=== PATIENT | female | born 1960 | race Caucasian/White ===

== ENCOUNTER 2018-10-01 08:19 | Emergency (ER) | payer BC ==
[~2018-10-01] VITALS: Ht 149.9 cm; Wt 77.3 kg
[~2018-10-01 08:19] MED LIST: AMBIEN 10MG10 MG PO; AMBIEN 5MG TABLE5 MG PO; CALCIUM CARB500 MG PO; CALCIUM1 CAP PO; FERROUS SU325 MG/TAB PO; FLUOXETINE20 MG PO; INDERAL 10MG10 MG PO; MOTRIN 200200 MG/TAB PO; NATURAL E400 IU PO; NEXIUM 40MG40 MG PO; OMEPRAZOLE40 MG PO; PROAIR HFA0.09 MG/AC IH; PROZAC40 MG PO; TYLENOL 500MG500 MG PO; VITAMIN D 1001000 IU PO; VITAMIN E28000 IU TP; [UNRECOGNIZED DRUG - OTHER] PO; fluoxetine PO
[2018-10-01 08:23] VITALS: TEMP 96.3
[2018-10-01 08:59] LABS: BASO # 0.1 (0.0-0.2); BASO % 0.5 % (0.0-2.0); EOS # 0.1 (0.0-0.7); EOS % 0.7 % (0-4.0); GRAN # 8.5 (1.4-6.5); GRAN % 72.1 % (42.2-75.2); HEMATOCRIT 42.3 % (37.0-47.0); HEMOGLOBIN 14.1 g/dl (12.5-16.0); LYMPH # 2.5 (1.2-3.4); LYMPH % 21.5 % (20.0-51.0); MEAN CELL VOLUME 92 fl (80.0-100.0); MEAN CORPUSCULAR HEMOGLOBIN 31 pg (27.0-31.0); MEAN CORPUSCULAR HGB CONC 33 g/dl (33.0-37.0); MEAN PLATELET VOLUME 9.8 fl (7.4-10.4); MONO # 0.6 (0.1-0.6); MONO % 4.8 % (1.7-9.3); PLATELET COUNT 278 K/mm3 (130-400); RED BLOOD COUNT 4.58 M/mm3 (4.10-5.30)
[2018-10-01 09:12] LABS: ALBUMIN 4.5 gm/dL (3.5-5.0); BILIRUBIN,TOTAL 0.5 mg/dL (0.0-1.0); C-REACTIVE PROTEIN 0.8 mg/dL (0.0-0.9); CALCIUM 9.7 mg/dL (8.4-10.2); CREATININE, serum 0.83 (0.52-1.25); TOTAL PROTEIN 7.8 gm/dL (6.4-8.2)
[2018-10-01] MEDS ORDERED: ZOFRAN 4MG T4 MG/TAB PO (10:38)
[2018-10-01] MEDS ORDERED: NORCO 325 MG-7.1 TAB PO (10:38)
[2018-10-01 11:45] LABS: COLLECTION METHOD CLEAN CATCH
[2018-10-01 11:52] LABS: MUCOUS Present /lpf; PH 7 (5-8); SQUAMOUS EPITHELIAL 0-2 /hpf; URINE APPEARANCE Clear; URINE BACTERIA None Seen /hpf; URINE BILIRUBIN Negative (NEGATIVE); URINE BLOOD 1+ (NEGATIVE); URINE COLOR Straw; URINE GLUCOSE Negative (NEGATIVE); URINE KETONE Negative (NEGATIVE); URINE LEUKOCYTE ESTERASE 1+ (NEGATIVE); URINE NITRATE Negative (NEGATIVE); URINE PROTEIN(semi-quant) Negative (NEGATIVE); URINE UROBILINOGEN Negative (NEGATIVE)
[2018-10-01 12:28] VITALS: BP 162/94; PULSE 104
== END 2018-10-01 12:49 | disposition home or self-care (01) ==
LOC: COL.ER 08:19
PROVIDERS: Physician Assistant
DX: N20.2 Calculus of kidney with calculus of ureter (principal); I10 Essential (primary) hypertension; D64.9 Anemia, unspecified; K21.9 Gastro-esophageal reflux disease without esophagitis; Z79.1 Long term (current) use of non-steroidal anti-inflammatories (NSAID); Z87.891 Personal history of nicotine dependence; Z90.49 Acquired absence of other specified parts of digestive tract; Z90.721 Acquired absence of ovaries, unilateral
CPT/HCPCS: J1170; J1885; J2405; J7030; Q9967

== ENCOUNTER 2023-09-11 08:04 | Day surgery (SDC) | payer BC ==
[~2023-09-11] VITALS: Ht 147.3 cm; Wt 84.7 kg
[~2023-09-11 08:04] MED LIST changes: +LR 1,000 ML IV SCH; +NORCO 325 MG-7.1 TAB PO; +Ondansetron 4 MG/2 ML VIAL IV PRN; +ZOFRAN 4MG T4 MG/TAB PO
[2023-09-11] MEDS ORDERED: Lidocaine PF 2% (20 MG/ML) 5 ML VIAL ONE (09:05)
[2023-09-11] MEDS ORDERED: Glycopyrrolate 0.2 MG/ML 1 ML VIAL ONE (09:05)
[2023-09-11] MEDS ORDERED: PROZAC 10MG10 MG PO (09:28)
[2023-09-11] MEDS ORDERED: TOPROL XL 50MG50 MG PO (09:29)
[2023-09-11] MEDS ORDERED: ALDACTONE50 MG PO (09:30)
[2023-09-11] MEDS ORDERED: NYSTATIN100000 U/1 TOP (09:34)
[2023-09-11] MEDS ORDERED: ULTRAM 50MG TAB50 MG PO (09:35)
[2023-09-11] MEDS ORDERED: TRIAMC 0.1 454 TOP (09:36)
[2023-09-11] MEDS ORDERED: VITAMIN B12 781 TAB PO (09:37)
[2023-09-11 11:35] VITALS: BP 104/67; PULSE 100; TEMP 98
[2023-09-11 11:50] VITALS: BP 121/67; PULSE 100
[2023-09-11 12:05] VITALS: BP 124/72; PULSE 98
--- NOTE | 2023-09-11 12:27 | NUR ---
1135: Pt arrived to bay [facility] - ambulated from cart to chair with standby assist 1140: pt tolerating po intake well 1208: MD Mara in room with pt and 1226: pt verbalizes understanding discharge materials 1230: pt escorted out via wheelchair with to vehicle
[2023-09-11 13:25] VITALS: BP 135/80; PULSE 92; TEMP 97.7
--- NOTE | 2023-09-11 13:28 | NUR ---
0857 Patient admitted to [facility] Patient ambulatory to bay 5 with the use of a cane, breathing even and unlabored. Pt is alert and oriented. Consents reviewed and signed by the patient. IV established. LR infusion via gravity at KVO. Call light in reach. Warm blanket provided.
== END 2023-09-11 12:29 | disposition home or self-care (01) ==
LOC: SDCO 08:04
DX: D50.8 Other iron deficiency anemias (principal); K44.9 Diaphragmatic hernia without obstruction or gangrene; K57.30 Diverticulosis of large intestine without perforation or abscess without bleeding; R05.9 Cough, unspecified; Q39.8 Other congenital malformations of esophagus; Z87.891 Personal history of nicotine dependence
CPT/HCPCS: J2704; J7120

== ENCOUNTER 2023-11-28 19:33 | Inpatient (IN) | payer BC ==
[~2023-11-28] VITALS: Ht 149.9 cm; Wt 86.3 kg
[~2023-11-28 19:33] MED LIST changes: +ALDACTONE50 MG PO; +ANTACID500 M1 PO; -CALCIUM CARB500 MG PO; -LR 1,000 ML IV SCH; +NYSTATIN100000 U/1 TOP; -Ondansetron 4 MG/2 ML VIAL IV PRN; +PROZAC 10MG10 MG PO; +TOPROL XL 50MG50 MG PO; +TRIAMC 0.1 454 TOP; +ULTRAM 50MG TAB50 MG PO; +VITAMIN B12 781 TAB PO
[2023-11-28] MEDS ORDERED: Ketorolac 30 MG/ML VIAL IV ONE (20:00)
[2023-11-28] MEDS ORDERED: Ondansetron 4 MG/2 ML VIAL IV ONE (20:00)
[2023-11-28] MEDS ORDERED: NS 1,000 ML IV ONE ×2 (20:00→21:30)
[2023-11-28 20:02] LABS: COLLECTION METHOD CLEAN CATCH
[2023-11-28 20:15] LABS: URINE APPEARANCE CLOUDY (CLEAR/HAZY); URINE BLOOD 2+ (NEGATIVE); URINE COLOR YELLOW (YELLOW); URINE GLUCOSE NEGATIVE (NEGATIVE); URINE KETONE NEGATIVE (NEGATIVE); URINE NITRATE POSITIVE (NEGATIVE); URINE PROTEIN(semi-quant) 1+ (NEGATIVE); URINE UROBILINOGEN 0.2 E.U/dL (0.2-1.0)
[2023-11-28 20:15] LABS: BASO % 0.2 % (0.0-2.0); EOS % 0.1 % (0.0-4.0); GRAN # 16.5 K/mm3 (1.4-6.5); GRAN % 86.4 % (42.2-75.2); HEMOGLOBIN 11.8 g/dl (12.5-16.0); LYMPH # 1.1 K/mm3 (1.2-3.4); LYMPH % 5.7 % (20.0-51.0); MEAN CELL VOLUME 82 fl (80.0-100.0); MEAN CORPUSCULAR HEMOGLOBIN 26 pg (27-31); MEAN CORPUSCULAR HGB CONC 32 g/dl (33.0-37.0); MONO # 1.3 K/mm3 (0.1-0.6); PLATELET COUNT 248 K/mm3 (130-400); RED BLOOD COUNT 4.51 M/mm3 (4.10-5.30); REDCELL DISTRIBUTION WIDTH-CV 14.8 % (11.5-14.5)
[2023-11-28 20:21] LABS: HEMATOCRIT 36.9 % (37.0-47.0)
[2023-11-28 20:35] LABS: ALBUMIN 3.4 g/dL (3.4-4.8); BILIRUBIN,TOTAL 0.7 mg/dL (0.2-1.2); CALCIUM 9.1 mg/dL (8.4-10.2); CREATININE, serum 0.81 mg/dL (0.57-1.11); POTASSIUM 3.3 mEq/L (3.5-4.5); TOTAL PROTEIN 7.1 g/dl (6.2-8.1)
[2023-11-28] MEDS ORDERED: cefTRIAXone 1 G in Water For Injection,Sterile 10 ML IV ONE (21:30)
[2023-11-28] MEDS ORDERED: Iohexol 300 - 100 ML VIAL IV ONE (21:31)
[2023-11-28] MEDS ORDERED: NS 100 ML IV ONE (21:32)
[2023-11-28] MEDS ORDERED: NS 1,000 ML IV SCH (23:00)
[2023-11-28] MEDS ORDERED: Potassium Bicarbonate/Citrate 20 MEQ Effervescent TAB PO SCH (23:00)
[2023-11-28] MEDS ORDERED: Ondansetron 4 MG/2 ML VIAL IV PRN (23:00)
[2023-11-28] MEDS ORDERED: HYDROmorphone 0.5 MG/0.5 ML SYRINGE IV PRN (23:00)
[2023-11-28] MEDS ORDERED: Acetaminophen 325 MG TAB PO PRN (23:00)
[2023-11-28] MEDS ORDERED: Albuterol 0.083% Neb Soln 2.5 MG/3 ML UD IH PRN (23:15)
[2023-11-29] VITALS (26 sets, daily range): BP systolic 83–126; BP diastolic 45–66; PULSE 73–109; TEMP 97.7–98.7
[2023-11-29] MEDS ORDERED: traMADol 50 MG TAB PO SCH
--- NOTE | 2023-11-29 00:08 | NUR ---
Spoken with Katey, the DIRECTOR AND PROFESSOR and clarified with her regarding the potassium order considering she's NPO postmidnight, she said it can be given with sips of water.
--- NOTE | 2023-11-29 00:46 | NUR ---
Patient arrived to the floor from ED per wheelchair at 2325, A/Ox4, admission assessment and intake done, medrec reviewed, hospital policies orientated, reports headache and right flank pain, medicated with tylenol and ultram, with IV infusing well on right AC, potassium 3.3 will replace as ordered, with oxygen via nasal cannula at 4LPM, satting 98%, turned it down to 3LPM, RT informed, denies further needs, call light and personal items within reach, will continue to monitor.
[2023-11-29] MEDS ORDERED: NS 1,000 ML IV ONE (04:30)
--- NOTE | 2023-11-29 04:42 | NUR ---
Patient's BP is 88 systolic, reports lightheaded, tachycardic between 110-105 called Katey and made her aware, received an order for bolus 1L, no further orders, charge nurse was aware of this as well, MEW score of 3, will closely monitor.
--- NOTE | 2023-11-29 05:05 | NUR ---
Updated Katey at 0435 regarding pt's latest blood pressure which is 97/62, no new orders at this time.
--- NOTE | 2023-11-29 05:59 | NUR ---
Updated Katey, the TEA TREE FARMER regarding pt's current blood pressure which is 98/62, still tachycardic at 107, no new orders at this time, will continue to monitor, will report off to dayscoft nurse.
[2023-11-29 06:35] LABS: HEMOGLOBIN 10.3 g/dl (12.5-16.0); MEAN CELL VOLUME 84 fl (80.0-100.0); MEAN CORPUSCULAR HEMOGLOBIN 26 pg (27-31); MEAN CORPUSCULAR HGB CONC 31 g/dl (33.0-37.0); MEAN PLATELET VOLUME 10.2 fl (7.4-10.4); PLATELET COUNT 220 K/mm3 (130-400); RED BLOOD COUNT 3.91 M/mm3 (4.10-5.30); REDCELL DISTRIBUTION WIDTH-CV 15.2 % (11.5-14.5)
--- NOTE | 2023-11-29 06:41 | NUR ---
Called Dr. Eduardo at this time and unable to get a hold of him, left a message for a critical result of 24.1, will report off to dayshift.
[2023-11-29 06:53] LABS: CALCIUM 7.5 mg/dL (8.4-10.2); CREATININE, serum 1.04 mg/dL (0.57-1.11); POTASSIUM 3.4 mEq/L (3.5-4.5)
[2023-11-29] MEDS ORDERED: Magnesium Sulfate 4% 50 ML IV ONE (07:15)
[2023-11-29 07:25] LABS: BAND 33 % (0-10); LYMPHOCYTE 1 % (20.0-51.0); NEUTROPHILS 63 % (42.0-75.2)
[2023-11-29 07:26] LABS: PLATELET ESTIMATE NORMAL (NORMAL)
--- NOTE | 2023-11-29 08:00 | NUR ---
PATIENT IS A&O. NOTED 02 @ 3L PER NC WITH SATS IN MID TO UPPER 90'S. 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 HR IN THE LOW 100'S. ALL OTHER VSS. UROLOGY ROUNDED, PLAN IS FOR SURGERY TODAY AT 1400. NPO. PATIENT C/O DRY MOUTH, GAVE PO SWABS. CONSENT OBTAINED AND ON CHART. IV FLUIDS INFUSING VIA PUMP INTO RIGHT AC IV. PATIENT MAG & POTASSIUM LABS LOW, SEE ORDERS FOR REPLACEMENT. HEAD TO TOE ASSESSMENT COMPLETE. NO OTHER NEEDS. CALL LIGHT IN REACH. BED ALARM ON.
[2023-11-29] MEDS ORDERED: FLUoxetine 20 MG CAP PO SCH (09:00)
[2023-11-29] MEDS ORDERED: FLUoxetine 10 MG TAB/CAP PO SCH (09:00)
[2023-11-29] MEDS ORDERED: Spironolactone 25 MG TAB PO SCH (09:00)
[2023-11-29] MEDS ORDERED: Pantoprazole 40 MG in NS 10 ML IV SCH (09:00)
--- NOTE | 2023-11-29 10:55 | NUR ---
PATIENT C/O PAIN IN RIGHT FLANK AND EARL AND REQUESTING SOMETHING FOR PAIN. NPO FOR SURGERY AT 1400 TODAY. GAVE PRN IV DILAUDID.
[2023-11-29] MEDS ORDERED: *Potassium Replacement Protocol MC SCH (11:00)
--- NOTE | 2023-11-29 11:05 | NUR ---
PATIENT VERY DROWSY AFTER DILAUDID AND SLEEPING HEAVILY. NOTED HYPOTENSION IN THE 80'S WITH HOB ELEVATED. LOWERED HOB, IV FLUIDS INFUSING, B/P NOW 99 SYSTOLIC. WILL MONITOR.
[2023-11-29] MEDS ORDERED: Potassium Chloride 100 ML IV SCH (11:15)
[2023-11-29] MEDS ORDERED: Magnesium Sulfate 4% 50 ML IV SCH (12:00)
--- NOTE | 2023-11-29 12:08 | NUR ---
parking worker met with patient and her , Frorest P# [phone], to discuss discharge planning. Patient also listed Jeanette (sister) as another contact, P# [phone] or P# [phone]. PCP is Dr. Monreal, Pharmacy [facility] in [place]. No DPOA-HC but may want to complete one later. Patient is supposed to use a CPAP at night but she cannot afford the cost to obtain a CPAP machine along with the study needed. Patient reports to be independent with ADLS and has a form of transportation to get to and from appointments. Patient would like to return home at time of discharge. Discharge plan: Home
[2023-11-29] MEDS ORDERED: NS 1,000 ML IV SCH (13:00)
--- NOTE | 2023-11-29 13:40 | NUR ---
PATIENT RESTING WITH NO NEEDS. AT BEDSIDE IS ALSO SLEEPING.
--- NOTE | 2023-11-29 14:40 | NUR ---
PATIENT GOING DOWN TO OR VIA BED. CONSENT & TICKET TO RIDE ON CHART. NPO. AT BEDSIDE. PATIENT OFF FLOOR.
[2023-11-29] MEDS ORDERED: Lidocaine PF 2% (20 MG/ML) 5 ML VIAL ONE (15:05)
[2023-11-29] MEDS ORDERED: Lidocaine 2% (20 MG/ML) 20 ML UROJET UR ONE (15:17)
--- NOTE | 2023-11-29 16:15 | NUR ---
PATIENT BACK FROM SURGERY IN ROOM 323. AT BEDSIDE. VSS. NO COMPLAINTS. RESTING WITH CALL LIGHT IN REACH.
--- NOTE | 2023-11-29 19:32 | NUR ---
Patient assessed at this time, see shift assessment, reports pain to the right flank, PS of 6/10, reports headache as well, medicated with tylenol at this time, with IV infusing well on right AC, with oxygen via nasal cannula 3LPM,with pyle to dependent drainage, denies further needs, call light and personal items within reach, will continue to monitor.
--- NOTE | 2023-11-29 20:34 | NUR ---
Spoken to Dr. Gruber and made her aware that pt's blood pressure is on 120's, received an order to change the rate of IV fluids to 75cc/hr.
[2023-11-29] MEDS ORDERED: cefTRIAXone 1 G in Water For Injection,Sterile 10 ML IV SCH (21:00)
[2023-11-30] VITALS (12 sets, daily range): BP systolic 97–133; BP diastolic 62–77; PULSE 86–101; TEMP 97.6–98.1
--- NOTE | 2023-11-30 00:45 | NUR ---
Patient reported she coudn't not get comfortable and unable to sleep, stated she has pain on her right side, PS of 7/10, medicated with IV dilaudid, systolic BP 130's, reports headache as well, will give tylenol in an hour, denies further needs, will continue to monitor.
--- NOTE | 2023-11-30 02:57 | NUR ---
Patient resting in bed, eyes closed, looks comfortable, respirations even and unlabored.
--- NOTE | 2023-11-30 04:23 | NUR ---
Patient awakened for IV antibiotics Rachaelsyn, reports pain is not that bad, catheter care provided at this time, denies further needs.
[2023-11-30 07:01] LABS: MEAN CELL VOLUME 86 fl (80.0-100.0); MEAN CORPUSCULAR HGB CONC 30 g/dl (33.0-37.0); MEAN PLATELET VOLUME 10.4 fl (7.4-10.4); PLATELET COUNT 220 K/mm3 (130-400); RED BLOOD COUNT 3.75 M/mm3 (4.10-5.30); REDCELL DISTRIBUTION WIDTH-CV 15.8 % (11.5-14.5)
[2023-11-30 07:05] LABS: HEMATOCRIT 32.2 % (37.0-47.0); HEMOGLOBIN 9.8 g/dl (12.5-16.0); MEAN CORPUSCULAR HEMOGLOBIN 26 pg (27-31)
[2023-11-30 07:19] LABS: CALCIUM 7.9 mg/dL (8.4-10.2); CREATININE, serum 0.96 mg/dL (0.57-1.11); MAGNESIUM 2.2 mg/dL (1.6-2.6); POTASSIUM 4.6 mEq/L (3.5-4.5)
--- NOTE | 2023-11-30 07:28 | NUR ---
CALLED CRITICAL WBC OF 31.5 TO HOSPITALIST WENDIE, NO NEW ORDERS.
--- NOTE | 2023-11-30 08:00 | NUR ---
PATIENT IS ORIENTED BUT DROWSY. NOTED SOFT B/P OF 97/62. 02 @ 3-4L NC TO KEEP SATS IN MID TO LOW 90'S. ALL OTHER VSS. C/O PAIN IN RIGHT FLANK & BACK. PATIENT GIVEN SCHEDULED ULTRAM BEFORE SHIFT CHANGE AND PRN TYLENOL WITH AM MEDS. NO C/O N/V. IV FLUIDS INFUSING VIA PUMP INTO RIGHT AC IV. IV ABX INFUSING. NOTED ELEVATED WBC OF 31.5 WHICH WAS CALLED TO HOSPITALIST THIS AM, NO NEW ORDERS. HEAD TO TOE ASSESSMENT COMPLETE. PT/OT CONSULTED. PATIENT SLEEPING WHILE TRYING TO EAT BREAKFAST. NURSING SAT PATIENT UP, LIGHTS ON AND WINDOW OPEN TO HELP STIMULATE HER TO STAY AWAKE. PATIENT IS MORE AWAKE AND OVERALL APPEARS BETTER THEN YESTERDAY. NO OTHER NEEDS AT THIS TIME. CALL LIGHT IN REACH.
[2023-11-30 08:12] LABS: BAND 13 % (0-10); LYMPHOCYTE 7 % (20.0-51.0); NEUTROPHILS 75 % (42.0-75.2); PLATELET ESTIMATE NORMAL (NORMAL)
[2023-11-30 08:13] LABS: ANISOCYTOSIS 1+
--- NOTE | 2023-11-30 14:55 | NUR ---
PATIENT VERY KINDLY ASKED IF PATIENT COULD HAVE SOMETHING TO HELP HER RELAX AND SLEEP TONIGHT, NOTHING NARCOTIC. CALLED HOSPITALIST, SEE NEW ORDERS FOR MELATONIN.
--- NOTE | 2023-11-30 16:36 | NUR ---
maintenance and repair worker was notified patient's oxygen stats decreased during her walk with PT. SW discussed this with Dr. Eduardo. Dr. Eduardo reported patient was not ready for discharge and they would continue to follow to determine needs for oxygen.
[2023-11-30] MEDS ORDERED: Melatonin 3 MG TAB PO SCH (21:00)
[2023-12-01] VITALS (11 sets, daily range): BP systolic 124–151; BP diastolic 73–89; PULSE 88–107; TEMP 97.5–98
[2023-12-01 06:58] LABS: HEMOGLOBIN 10.9 g/dl (12.5-16.0); MEAN CELL VOLUME 85 fl (80.0-100.0); MEAN CORPUSCULAR HEMOGLOBIN 27 pg (27-31); MEAN CORPUSCULAR HGB CONC 31 g/dl (33.0-37.0); MEAN PLATELET VOLUME 10.9 fl (7.4-10.4); PLATELET COUNT 204 K/mm3 (130-400); RED BLOOD COUNT 4.09 M/mm3 (4.10-5.30); REDCELL DISTRIBUTION WIDTH-CV 15.8 % (11.5-14.5)
[2023-12-01 07:11] LABS: HEMATOCRIT 34.7 % (37.0-47.0)
[2023-12-01 07:30] LABS: CALCIUM 8.8 mg/dL (8.4-10.2); CREATININE, serum 0.76 mg/dL (0.57-1.11); POTASSIUM 4.8 mEq/L (3.5-4.5)
--- NOTE | 2023-12-01 07:30 | NUR ---
Pt resting in bed at this time. She reports having a little headache which she has been taking tylenol for. Pt has ordered breakfast. No other needs at this time
--- NOTE | 2023-12-01 08:02 | NUR ---
THE PATIENT HAD SOME ANXIETY OVER NIGHT AND WAS CRYING BECAUSE SHE HAD A HEADACHE. THE PATIENT WAS PROVIDED PRN PAIN MEDICATIONS PER ORDERS. THE PATIENT ALSO WANTED A FAN AND A FAN WAS OBTAINED BY THE SPA CONSULTANT AND PROVIDED TO THE PATIENT. THE PATIENT DID NOT SLEEP MUCH OVERNIGHT.
--- NOTE | 2023-12-01 08:45 | NUR ---
Pt now sitting up in the chair. She has eaten some breakfast, but states she is still picking on it. She said that she feels like she can't catch her breath. O2 sats are in the 90s at this time. Turned fan on her and tried calming her as she was starting to get worked up. Discussed trying an oxymask as she was breathing through her mouth. As i returned to her room, she was sleeping with her eyes closed, even non labored breathing. I left her on the nasal cannula at this time
[2023-12-01] MEDS ORDERED: Albuterol/Ipratropium 3 MG-0.5 MG/3 ML Neb Soln IH PRN (09:30)
--- NOTE | 2023-12-01 09:30 | NUR ---
Discussed pt with Dr Eduardo. Mentioned pt has complaints of feeling like she can't catch her breath. He is aware of her white count. Pt O2 sats have remained in the 90s on O2 at 2L. Pt currently sitting up in the chair.
[2023-12-01 09:31] LABS: BAND 9 % (0-10); EOSINOPHIL 2 % (0-4); LYMPHOCYTE 3 % (20.0-51.0); NEUTROPHILS 81 % (42.0-75.2)
[2023-12-01 09:32] LABS: ANISOCYTOSIS 1+; BURR CELLS 1+; PLATELET ESTIMATE NORMAL (NORMAL)
--- NOTE | 2023-12-01 10:12 | NUR ---
Pt off the floor with radiology
--- NOTE | 2023-12-01 12:48 | NUR ---
Pt sitting up in the chair, states that she is more comfortable in the chair. Pt is frustrated and tearful. States that she can't get comfortable no matter what she tries. Asked if I could do anything to help her get comfortable. She started crying again and stated that she doesn't know what to do. Pt stated that she feels miserable, but can't explain why. She states that her head hurts, PRN medication and scheduled pain medication given. Pt reports that she wishes she could have medicine to help her sleep for 10 hours. She then started getting upset that her lunch had not come. Informed her that it was ordered and that I would check on it. Pt then rolled over on her side in the chair and seemed to be a little more calm. Pt does have call light within reach
--- NOTE | 2023-12-01 15:02 | NUR ---
Pt resting in her recliner. Eyes closed, even non labored breathing
[2023-12-01] MEDS ORDERED: Furosemide 40 MG TAB PO ONE (17:00)
[2023-12-02] VITALS (11 sets, daily range): BP systolic 96–163; BP diastolic 61–82; PULSE 90–99; TEMP 97.6–98.6
[2023-12-02 06:34] LABS: HEMOGLOBIN 11.2 g/dl (12.5-16.0); MEAN CELL VOLUME 82 fl (80.0-100.0); MEAN CORPUSCULAR HEMOGLOBIN 26 pg (27-31); MEAN CORPUSCULAR HGB CONC 32 g/dl (33.0-37.0); MEAN PLATELET VOLUME 10.3 fl (7.4-10.4); PLATELET COUNT 246 K/mm3 (130-400); RED BLOOD COUNT 4.26 M/mm3 (4.10-5.30); REDCELL DISTRIBUTION WIDTH-CV 15.9 % (11.5-14.5)
[2023-12-02 06:46] LABS: HEMATOCRIT 35.1 % (37.0-47.0)
[2023-12-02 06:52] LABS: CALCIUM 9.1 mg/dL (8.4-10.2); CREATININE, serum 0.71 mg/dL (0.57-1.11); MAGNESIUM 1.9 mg/dL (1.6-2.6); POTASSIUM 3.4 mEq/L (3.5-4.5)
[2023-12-02] MEDS ORDERED: Potassium Bicarbonate/Citrate 20 MEQ Effervescent TAB PO SCH (07:15)
[2023-12-02 08:13] LABS: ANISOCYTOSIS 1+; BAND 6 % (0-10); HYPOCHROMIA 1+; LYMPHOCYTE 10 % (20.0-51.0); NEUTROPHILS 80 % (42.0-75.2); PLATELET ESTIMATE NORMAL (NORMAL)
--- NOTE | 2023-12-02 09:00 | NUR ---
Pt doing much better today than yesterday. She reports only have mild pain in her right side. Pt is sitting up in the chair. She is using her call light when she needs to get up. Pt continues to be standby assist
[2023-12-02] MEDS ORDERED: traMADol 50 MG TAB PO PRN (11:03)
--- NOTE | 2023-12-02 11:44 | NUR ---
Pt continues to do well, mild pain complaints. Changed scheduled ultram to PRN as pt is pretty sleepy and sleeping more during the day. Pt continues to sit up in the chair, no needs verbalized
--- NOTE | 2023-12-02 17:00 | NUR ---
Pt did well today. She continues to sleep off and on in the chair. RT did walk with pt and pt does qualify for home oxygen. Pt has visitors in the room at this time. No other needs, awaiting dinner at this time
[2023-12-03] VITALS: BP 145/68; PULSE 72; TEMP 98.3
[2023-12-03 01:00] VITALS: BP_SYST 145
[2023-12-03 03:51] VITALS: BP 133/70; PULSE 98; TEMP 98.3
[2023-12-03 03:56] VITALS: BP_SYST 133
[2023-12-03 06:50] LABS: HEMOGLOBIN 10.9 g/dl (12.5-16.0); MEAN CELL VOLUME 81 fl (80.0-100.0); MEAN CORPUSCULAR HEMOGLOBIN 26 pg (27-31); MEAN CORPUSCULAR HGB CONC 32 g/dl (33.0-37.0); MEAN PLATELET VOLUME 10.1 fl (7.4-10.4); PLATELET COUNT 247 K/mm3 (130-400); REDCELL DISTRIBUTION WIDTH-CV 15.8 % (11.5-14.5)
[2023-12-03 07:09] VITALS: BP 149/82; PULSE 91; TEMP 98.4
[2023-12-03 07:14] LABS: CREATININE, serum 0.69 mg/dL (0.57-1.11); MAGNESIUM 1.7 mg/dL (1.6-2.6); POTASSIUM 3.6 mEq/L (3.5-4.5)
--- NOTE | 2023-12-03 07:19 | NUR ---
SPOP2 96% ON 2 LPM, SP02 ON RA 92% BS COARSE T/O. TASHI SYED.
[2023-12-03] MEDS ORDERED: Potassium Bicarbonate/Citrate 20 MEQ Effervescent TAB PO SCH (07:30)
[2023-12-03 07:45] LABS: BAND 8 % (0-10); LYMPHOCYTE 17 % (20.0-51.0); METAMYELOCYTE 3 % (0-0); MYELOCYTE 1 % (0-0); NEUTROPHILS 63 % (42.0-75.2); PLATELET ESTIMATE NORMAL (NORMAL)
[2023-12-03] MEDS ORDERED: CEFTIN500 MG PO (08:19)
[2023-12-03] MEDS ORDERED: OXYGEN NASAL.CANN (08:21)
[2023-12-03] MEDS ORDERED: FLUCONAZOLE PO ONE (08:30)
[2023-12-03] MEDS ORDERED: Cefuroxime 250 MG TAB PO ONE (08:30)
[2023-12-03 09:16] VITALS: BP_SYST 164
--- NOTE | 2023-12-03 11:32 | NUR ---
Reviewed discharge instructions with pt and spouse. Pt verbalized understanding. Pt was feeling sick to her stomach earlier, she reports feeling better now. She did take a lot of medications this morning. Encouraged her to make sure she takes her medication with food. Discussed follow up appointments and new medication. No questions at this time. She is aware that we are waiting on oxygen to arrive before she can leave. No other needs, will continue to monitor
--- NOTE | 2023-12-03 12:38 | NUR ---
Home medical staff in room explaining oxygen at this time. INT has been removed from right AC. Once he is done discussing oxygen, pt will be ready for discharge
--- NOTE | 2023-12-03 13:00 | NUR ---
Pt escorted out at this time
--- NOTE | 2023-12-03 13:03 | NUR ---
lithographic general worker was informed pt will need oxygen and will discharge today. FABIAN met with pt who was agreeable to using [facility] for oxygen. She reports that she is still working. FABIAN advised she will send this and it will be brought to her room. FABIAN emailed [facility] pt's oxygen order. FABIAN informed ANSLEY Woo about this and has not got a delivery time. Discharge Plan: home
== END 2023-12-03 13:00 | disposition home or self-care (01) | DRG 720 ==
LOC: COL.ER 19:33 → SURG 22:32 → EDBEDREQTM 22:50 → SURG 23:22
PROVIDERS: Nurse Practitioner Family; Nurse Practitioner Primary Care; Urology; ADMIT Internal Medicine
PROC: 0T768DZ Dilation of Right Ureter with Intraluminal Device, Via Natural or Artificial Opening Endoscopic (ICD-10-PCS; principal; 2023-11-29 15:00)
DX: A41.9 Sepsis, unspecified organism (principal); N13.2 Hydronephrosis with renal and ureteral calculous obstruction; K80.20 Calculus of gallbladder without cholecystitis without obstruction; K44.9 Diaphragmatic hernia without obstruction or gangrene; J96.01 Acute respiratory failure with hypoxia; K76.0 Fatty (change of) liver, not elsewhere classified; D50.9 Iron deficiency anemia, unspecified; E87.1 Hypo-osmolality and hyponatremia; E83.42 Hypomagnesemia; E87.6 Hypokalemia; K21.9 Gastro-esophageal reflux disease without esophagitis; Z79.891 Long term (current) use of opiate analgesic; Z87.891 Personal history of nicotine dependence; Z88.8 Allergy status to other drugs, medicaments and biological substances
CPT/HCPCS: A4314; A9284; C1769; C2617; J0696; J1170; J1885; J2405; J2470; J2543; J2704; J3475; J3480; J7030; Q9967

== ENCOUNTER 2023-12-17 11:19 | Day surgery (SDC) | payer BC ==
[~2023-12-17] VITALS: Ht 149.9 cm; Wt 78.3 kg
[~2023-12-17 11:19] MED LIST changes: +CEFTIN500 MG PO; +Famotidine 20 MG TAB PO SCH; +LR 1,000 ML IV SCH; +Meclizine 25 MG TAB PO SCH; +OXYGEN NASAL.CANN
[2023-12-17 11:52] VITALS: BP 106/53; PULSE 63; TEMP 98.1
--- NOTE | 2023-12-17 12:35 | NUR ---
Pt admitted to [facility] [place] [address]. Consents signed. Admission assessments completed. 18G IV inserted into RAC, LR infusing without complications. Failed IV attempt to right hand. Medications, allergies, and pharmacy confirmed. DIRECT SERVICE PROFESSIONAL in room to talk with patient. Cart in low position, call light within reach.
[2023-12-17] MEDS ORDERED: fentaNYL 50 MCG/ML 2 ML VIAL ONE (13:02)
[2023-12-17] MEDS ORDERED: Lidocaine PF 2% (20 MG/ML) 5 ML VIAL ONE (13:02)
[2023-12-17] MEDS ORDERED: Ondansetron 4 MG/2 ML VIAL ONE (13:16)
[2023-12-17] MEDS ORDERED: Glycopyrrolate 0.2 MG/ML 1 ML VIAL ONE (13:16)
[2023-12-17] MEDS ORDERED: NS 10 ML IV ONE (13:16)
[2023-12-17] MEDS ORDERED: dexAMETHasone 10 MG/ML VIAL ONE (13:16)
[2023-12-17] MEDS ORDERED: hydrALAZINE 20 MG/ML 1 ML VIAL IV PRN (13:30)
[2023-12-17] MEDS ORDERED: fentaNYL 50 MCG/ML 1 ML SYRINGE/VIAL [PACU/SDC ONLY] IV PRN (13:30)
[2023-12-17] MEDS ORDERED: droPERidol 2.5 MG/ML 2 ML VIAL IV PRN (13:30)
[2023-12-17] MEDS ORDERED: Ondansetron 4 MG/2 ML VIAL IV PRN (13:30)
[2023-12-17] MEDS ORDERED: HYDROmorphone 1 MG/1 ML SYRINGE [PACU/SDC ONLY] IV PRN (13:30)
[2023-12-17] MEDS ORDERED: Lidocaine 2% (20 MG/ML) 20 ML UROJET UR ONE (13:36)
[2023-12-17] MEDS ORDERED: ROXICODONE 55 MG/TAB PO (13:44)
[2023-12-17 14:15] VITALS: BP 126/61; PULSE 74; TEMP 97.8
[2023-12-17 14:30] VITALS: BP 121/57; PULSE 81
[2023-12-17 14:45] VITALS: BP 117/51; PULSE 72
[2023-12-17 15:00] VITALS: BP 118/47; PULSE 72
--- NOTE | 2023-12-17 15:35 | NUR ---
1415- Pt returns from PACU, up to bathroom with assist of one, voids- urine yellow. VSS. REports pain is 3/10. 1430- Pt reports that pain is 5/10, see EMAR for pain medication administration. Lights off, encouraged patient to rest. Sprite and tonio crackers given per request. at bedside. Cart in low position, call light within reach. 1500- Pt feels ready to get dressed, monitors removed. 1520- Discharge instructions and education reviewed. Questions answered. IV site removed. Pt down to [facility] car via w/c, accompanied by staff at 1525. Denied complaints.
[2023-12-17 15:52] VITALS: BP 146/75; PULSE 75; TEMP 97.4
== END 2023-12-17 15:25 | disposition home or self-care (01) ==
LOC: SDCO 11:19
DX: N20.2 Calculus of kidney with calculus of ureter (principal); Z87.440 Personal history of urinary (tract) infections
CPT/HCPCS: C1769; J0690; J1100; J1170; J2405; J2704; J3010; J7120